=== PATIENT | female | born 1940 | race Caucasian/White ===

== ENCOUNTER 2019-03-16 15:24 | Emergency (ER) | payer OTHER, SELFPAY ==
[2019-03-16 15:30] VITALS: BP 165/99; PULSE 70; RESP 20; TEMP 36.8; O2SAT 99
--- NOTE | 2019-03-16 15:34 | DI.RAD.S_ITS ---
PROCEDURE: XR CHEST 1V INDICATIONS: chest pain TECHNIQUE: One view of the chest was acquired. COMPARISON: None. FINDINGS: Surgical changes and devices: None. Lungs and pleura: Lungs are clear. No pleural effusions or pneumothorax. Mediastinum: Mediastinal contours appear normal. Heart size is normal. Bones and chest wall: No suspicious bony lesions. Overlying soft tissues appear unremarkable. IMPRESSION: Normal for age, source of current chest pain symptoms is not seen. Dictated by: Michael Pichardo M.D. on 03/16/2019 at 16:28 Approved by: Michael Pichardo M.D. on 03/16/2019 at 16:28
[2019-03-16 15:51] LABS: Add Manual Diff / Slide Review NO; Basophils Absolute Auto 0 /uL (0-100); Basophils Percent Auto 0.3 % (0-2); Eosinophils Absolute Auto 100 /uL (0-450); Eosinophils Percent Auto 2.1 % (2-4); Hematocrit 42.5 % (36-46); Hemoglobin 13.9 g/dL (12.0-16.0); Lymphocytes Absolute Auto 1300 /uL (1100-4500); Lymphocytes Percent Auto 20.8 % (25-40); Mean Corpuscular HGB Conc 32.7 % (30-36); Mean Corpuscular Hemoglobin 30.9 PG (26-34); Mean Corpuscular Volume 94.3 fL (80-100); Monocytes Absolute Auto 700 /uL (0-900); Monocytes Percent Auto 11.2 % (3-14); Neutrophils Absolute Auto 4100 /uL (1500-7000); Neutrophils Percent Auto 65.6 % (50-75); Platelet Count 209 X10^3/uL (150-400); Red Blood Cell Count 4.51 X10^6/uL (4.0-5.2); Red Cell Distribution Width 14.5 % (11.6-14.8); White Blood Cell Count 6.2 X10^3/uL (4.5-11.0)
[2019-03-16 15:58] LABS: Prothrombin Time 11.5 SECONDS (10.1-12.7)
[2019-03-16 16:00] LABS: PTT Partial Thromboplastin Tim 32 SECONDS (26.4-36.2)
[2019-03-16 16:03] LABS: Alanine Aminotransferase 28 IU/L (9-52); Albumin 4.2 g/dL (3.5-5.0); Albumin Globulin Ratio 1.6 (1.0-2.8); Alkaline Phosphatase 82 U/L (38-126); Aspartate Aminotransferase 38 IU/L (14-36); BUN Creatinine Ratio 26.7 (6-22); Bilirubin Total 1.2 mg/dL (0.2-1.3); Blood Urea Nitrogen 24 mg/dL (7-17); Calcium 9.1 mg/dL (8.4-10.2); Carbon Dioxide 27 mmol/L (22-32); Chloride 103 mmol/L (98-107); Creatine Kinase 158 U/L (30-135); Estimated Glomerular Filt Rate > 60.0 mL/min (>60); Globulin 2.7 g/dL (1.7-4.1); Glucose 94 mg/dL (80-110); HEMOLYSIS 20 (0-50); Lipase 98 U/L (23-300); Potassium 4.4 mmol/L (3.4-5.1); Sodium 139 mmol/L (137-145); Total Protein 6.9 g/dL (6.3-8.2)
[2019-03-16 16:14] LABS: Troponin I < 0.012 ng/mL (0.01-0.034)
[2019-03-16 16:18] LABS: CKMB % Relative Index 1.3 % (1.5-5.0)
--- NOTE | 2019-03-16 16:37 | ED.NEUROSD ---
HPI - Neuro Symptoms/Deficit General Chief Complaint: Neuro Symptoms/Deficit Stated Complaint: high bp with vision changes Time Seen by Provider: 03/16/19 16:24 Source: patient Mode of arrival: ambulatory Limitations: no limitations History of Present Illness HPI Narrative: Patient is 78-year-old female who presents with ?swimming vision only when she wakes up in the mornings. She says when she sits up she feels like the mena are moving if she sits on the edge of her bed for just a few minutes and goes away and she has no other symptoms rest of the day. She denies that the she is dizzy or that the room is spinning. She has no chest pain or palpitations shortness of breath no weakness numbness or tingling. This has been ongoing for the last 3 days. She says this has never happened to her before. She does urinate frequently but nothing abnormal for her she has not had fever. Onset (ago): day(s) On Anticoagulants: No Related Data Home Medications Medication Instructions Recorded Confirmed amlodipine 2.5 mg PO BEDTIME 03/16/19 03/16/19 atorvastatin 20 mg PO DAILY 03/16/19 03/16/19 Allergies Allergy/AdvReac Type Severity Reaction Status Date / Time INGREDIENT: NDA - NO KNOWN Allergy Unknown Uncoded 11/11/17 12:00 DRUG ALLERGIES Review of Systems Review of Systems ROS Unobtainable: All systems reviewed & are unremarkable except as noted in HPI and below Constitutional Denies chills, Denies fever(s), Denies lethargy and Denies weakness Eyes Reports as per HPI and Reports blurry vision ENT Ears, Nose, Mouth, and Throat: Denies change in voice, Denies neck pain and Denies sore throat Cardiovascular Denies chest pain, Denies irregular heart rhythm, Denies lightheadedness, Denies palpitations, Denies dyspnea, Denies dyspnea on exertion and Denies orthopnea Respiratory Denies cough, Denies dyspnea, Denies dyspnea on exertion and Denies wheezing Gastrointestinal Gastrointestinal: Denies abdominal pain, Denies change in bowel habits, Denies diarrhea, Denies nausea and Denies vomiting Genitourinary Denies hematuria, Denies flank pain, Denies urinary incontinence and Denies urinary urgency Musculoskeletal Denies neck pain Integumentary/Breasts Denies pruritus, Denies erythema, Denies rash and Denies wounds Neurologic Denies weakness Endocrine Denies palpitations Allergic/Immunologic Denies wheezing [facility] Medical History (Updated 03/16/19 @ 18:44 by Khushboo Holbrook DO) Hyperlipidemia (Acute) Hypertension (Acute) Social History Smoking Status: Never smoker Social History Smoking Status: Never smoker Exam Initial Vital Signs Initial Vital Signs: Vital Signs Temperature 98.2 F 03/16/19 15:30 Pulse Rate 70 03/16/19 15:30 Respiratory Rate 20 03/16/19 15:30 Blood Pressure 165/99 H 03/16/19 15:30 Pulse Oximetry 99 03/16/19 15:30 GENERAL: Well-appearing, well-nourished and in no acute distress. HEENT: Head atraumatic,EOMI, pupils reactive, face symmetric, moist mucous membranes CARDIOVASCULAR: Regular rate and rhythm without murmurs, rubs or gallops. RESPIRATORY: Breath sounds equal bilaterally, no wheezes rales or rhonchi. ABDOMEN: Soft, nontender. Normoactive bowel sounds all 4 quadrants. No guarding or rebound.ss EXTREMITIES: Normal range of motion, no clubbing or edema. Neurovascularly intact NEUROLOGICAL: Alert and oriented x4.Normal gait and speech. Cranial nerves II through XII grossly intact. SKIN: Warm, dry, no laceration, no petechiae, no rashes or lesions. Scores NIH Stroke Scale Level of Conciousness: Alert, keenly responsive Ask month/age: Answers both questions correctly. Open/close eyes, close hand: Performs both tasks correctly Best gaze horizontal: Normal Visual truong: No visual loss Facial palsy: Normal symetrical movement Left arm drift: No drift for full 10 sec Right arm drift: No drift for full 10 sec Left leg drift: No drift for full 10 sec Right leg drift: No drift for full 10 sec Limb ataxia: Absent Sensory on face/arms/legs: Normal, no sensory loss Best language: No aphasia, normal Dysarthria: Normal Extinction or inattention: No abnormality Total NIH Stroke scale score: 0 Course Orders Ordered: ED Orders 03/16/19 15:34 XR chest 1V Stat EKG-12 Lead Stat 03/16/19 15:44 Complete Blood Count AUTO DIFF Stat Comprehensive Metabolic Panel Stat Lipase Stat Partial Thromboplastin Time Stat Prothrombin Time INR Stat Troponin & CK Cardiac Panel Stat 03/16/19 16:04 EKG-12 Lead Routine Discontinued Medications Sodium Chloride (Normal Saline 0.9%) 1,000 mls @ 1,000 mls/hr IV BOLUS ONE Stop: 03/16/19 17:36 Last Infusion: 03/16/19 17:53 Dose: 0 mls/hr Admin: 03/16/19 16:42 Dose: 1,000 mls/hr Vital Signs - 8 hr 03/16/19 15:30 03/16/19 16:50 03/16/19 17:30 Temperature 98.2 F Pulse Rate 70 66 73 Respiratory Rate 20 12 15 Blood Pressure 165/99 H Blood Pressure [Left Arm] 155/96 H 168/94 H Pulse Oximetry 99 99 99 MDM - Neuro Symptoms/Deficit Lab Data Result diagrams: 03/16/19 15:44 03/16/19 15:44 Lab Results 03/16/19 03/16/19 03/16/19 Range/Units 15:44 15:44 15:44 WBC 6.2 (4.5-11.0) X10^3/uL RBC 4.51 (4.0-5.2) X10^6/uL Hgb 13.9 (12.0-16.0) g/dL Hct 42.5 (36-46) % MCV 94.3 (80-100) fL MCH 30.9 (26-34) PG MCHC 32.7 (30-36) % RDW 14.5 (11.6-14.8) % Plt Count 209 (150-400) X10^3/uL Neut % (Auto) 65.6 (50-75) % Lymph % (Auto) 20.8 L (25-40) % [place] % (Auto) 11.2 (3-14) % Eos % (Auto) 2.1 (2-4) % Baso % (Auto) 0.3 (0-2) % Neut # (Auto) 4100 (8027-7848) /uL Lymph # (Auto) 1300 (9574-7183) /uL [place] # (Auto) 700 (0-900) /uL Eos # (Auto) 100 (0-450) /uL Baso # (Auto) 0 (0-100) /uL PT 11.5 (10.1-12.7) SECONDS INR 1.0 (0.9-1.3) APTT 32 (26.4-36.2) SECONDS Sodium 139 (137-145) mmol/L Potassium 4.4 (3.4-5.1) mmol/L Chloride 103 (98-107) mmol/L Carbon Dioxide 27 (22-32) mmol/L BUN 24 H (7-17) mg/dL Creatinine 0.90 (0.52-1.04) mg/dL Estimated GFR > 60.0 (>60) mL/min BUN/Creatinine Ratio 26.7 H (6-22) Glucose 94 (80-110) mg/dL Calcium 9.1 (8.4-10.2) mg/dL Total Bilirubin 1.2 (0.2-1.3) mg/dL AST 38 H (14-36) IU/L ALT 28 (9-52) IU/L Alkaline Phosphatase 82 (38-126) U/L Total Creatine Kinase 158 H (30-135) U/L CK-MB (CK-2) 2.10 (<2.37) ng/mL CK-MB (CK-2) Rel Index 1.3 L (1.5-5.0) % Troponin I < 0.012 (0.01-0.034) ng/mL Total Protein 6.9 (6.3-8.2) g/dL Albumin 4.2 (3.5-5.0) g/dL Globulin 2.7 (1.7-4.1) g/dL Albumin/Globulin Ratio 1.6 (1.0-2.8) Lipase 98 (23-300) U/L Discharge Plan Departure Patient Disposition: Home Clinical Impression: Orthostatic hypotension Discharge Date/Time: 03/16/19 17:58 Interventions: ED Discharge Assessment Last Done: 03/16/19 17:53 Instructions: DI for Orthostatic Hypotension Activity Restrictions/Additional Instructions: *You have been diagnosed with orthostatic hypotension *What to do: Recommend taking her blood pressure every day 1st thing in the morning. Get up and out of bed sleep. Increase water intake. Your blood pressure medication may need to be adjusted. Also I do recommend an outpatient stress test with her PCP. Her EKG does show some concerning signs however today her symptoms are not consistent with any cardiac problems *Continue to take medications as directed *Follow up with your primary care provider in 2-3 days *Return to ER if you should have dizziness lightheadedness passing pain shortness of breath with exertion or any new, worsening or concerning symptoms Prescriptions: No Action atorvastatin 20 mg Tablet 20 mg PO DAILY RF: 0 amlodipine 2.5 mg Tablet 2.5 mg PO BEDTIME RF: 0
[2019-03-16] MEDS: SODIUM CHLORIDE 0.9% 1,000 ML 1000 ML IV (16:42)
--- NOTE | 2019-03-16 16:46 | PC.NURSE ---
Pt states for the past two morning has waken up in the morning and noticed the pictures on the wall swimming. States stops after a few minutes of being awake but states has happened 2 mornings in a row.
[2019-03-16 16:50] VITALS: BP 155/96; PULSE 66; RESP 12; O2SAT 99
[2019-03-16 17:30] VITALS: BP 168/94; PULSE 73; RESP 15; O2SAT 99
== END 2019-03-16 17:58 | disposition home or self-care (01) ==
PROVIDERS: Emergency Provider Emergency Medicine
DX: I95.1 Orthostatic hypotension (principal)
CPT/HCPCS: 36415; 71045; 80053; 82550; 82553; 83690; 84484; 85025; 85610; 85730; 93005; 93010; 96360; 99283; 99285

== ENCOUNTER → 2023-01-05 10:23 | Outpatient (CLI) | payer OTHER, SELFPAY | PROVIDERS: Visit Provider Physician Assistant | DX: L98.9 Disorder of the skin and subcutaneous tissue, unspecified (principal) | CPT/HCPCS: 87070; 87205 ==

== ENCOUNTER → 2023-03-17 12:11 | Outpatient (CLI) | payer OTHER, SELFPAY | PROVIDERS: Visit Provider Student in an Organized Health Care Education/Training Program | DX: R39.15 Urgency of urination (principal) | CPT/HCPCS: 87077; 87086; 87186 ==